=== PATIENT | female | born 1990 | race Caucasian/White ===

== ENCOUNTER 2018-01-24 13:17 | Day surgery (SDC) | payer OTHER ==
[2018-01-24] MEDS ORDERED: LIDOCAINE 4% SOLUTION 50 ML BTL (16:16)
[2018-01-24] MEDS ORDERED: MIDAZOLAM 1 MG/ML 2 ML INJ ×3 (17:14→17:15)
[2018-01-24] MEDS ORDERED: FENTAnyl 50 MCG/ML VIAL ×2 (17:15)
== END 2018-01-24 19:30 | disposition home or self-care (01) ==
LOC: GIL 13:17
DX: K29.50 Unspecified chronic gastritis without bleeding (principal); K26.9 Duodenal ulcer, unspecified as acute or chronic, without hemorrhage or perforation; E66.01 Morbid (severe) obesity due to excess calories; Z68.41 Body mass index [BMI] 40.0-44.9, adult
CPT/HCPCS: 43239; 84703; 88305; 88312